=== PATIENT | female | born 1945 | race Caucasian/White ===

== ENCOUNTER 2017-02-17 14:23 | Inpatient (IN) | payer MEDICARE, OTHER ==
[~2017-02-17] VITALS: Ht 154.9 cm; Wt 80.3 kg
[~2017-02-17 14:23] MED LIST: ASPI-110 PO; FLUT1SPR5 EACH NARE; LISI-515 PO; LORA10TA PO; LORA1TAB12 PO; METO25TA3 PO; PANT40TA3 PO
[2017-02-20] MEDS ORDERED: SCOPOLAMINE 1.5 MG PATCH ONE (06:29)
[2017-02-20] MEDS ORDERED: APREPITANT 40 MG CAP ONE (06:29)
[2017-02-20] MEDS ORDERED: LACTATED RINGER'S 1000 ML INJ 1,000 ML ONE (06:30)
[2017-02-20] MEDS ORDERED: metroNIDAZOLE 500 MG INJ 100 ML IV ONE (06:30)
[2017-02-20] MEDS ORDERED: ACETAMINOPHEN 1000 MG/100 ML VIAL IV ONE (06:30)
[2017-02-20] MEDS ORDERED: ONDANSETRON HCL 4 MG/2 ML VIAL ONE (06:30)
[2017-02-20 06:43] VITALS: BP 147/85; PULSE 77; RESP 20; TEMP 98.3; O2SAT 93
[2017-02-20] MEDS ORDERED: METOPROLOL TARTRATE 25 MG TAB PO PRN (06:45)
[2017-02-20] MEDS ORDERED: ONDANSETRON HCL 4 MG/2 ML VIAL IV PUSH SCH (06:45)
[2017-02-20] MEDS ORDERED: VANCOMYCIN 1,250 MG/NS 250 ML (for 70-84 kg) IV SCH ×2 (06:45)
[2017-02-20] MEDS ORDERED: ACETAMINOPHEN 1000 MG/100 ML VIAL IV SCH (06:45)
[2017-02-20] MEDS ORDERED: SCOPOLAMINE 1.5 MG PATCH T-DERMAL SCH (06:45)
[2017-02-20] MEDS ORDERED: INSULIN HUMAN REGULAR 1,000 UNITS/10 ML VIAL SQ PRN (06:45)
[2017-02-20] MEDS ORDERED: LACTATED RINGER'S 1000 ML IV PRN (06:45)
[2017-02-20] MEDS ORDERED: CHLORHEXIDINE GLUCONATE 2 % 1 PACK (2 CLOTHS) TOPICAL PRN (06:45)
[2017-02-20] MEDS ORDERED: POVIDONE IODINE 5% (ANTISEPSIS KIT) 4 APPLICATIONS EACH NARE PRN (06:45)
[2017-02-20] MEDS ORDERED: SODIUM CHLORID 0.9% 500 ML IV PRN (06:45)
[2017-02-20] MEDS ORDERED: metroNIDAZOLE 500 MG INJ 100 ML IV SCH (06:45)
[2017-02-20] MEDS ORDERED: APREPITANT 40 MG CAP PO SCH (06:45)
[2017-02-20] MEDS ORDERED: DEXAMETHASONE SOD PHOS 4 MG/ML VIAL ONE (07:16)
[2017-02-20] MEDS ORDERED: BUPIVACAINE/EPINEPHRINE 0.25% 50 ML VIAL ONE (07:34)
[2017-02-20] MEDS ORDERED: BUPIVACAINE HCL PF 0.25% 30 ML VIAL ONE (07:59)
[2017-02-20] MEDS ORDERED: METHYLENE BLUE 100 MG/10 ML VIAL OTHER ONE (08:26)
[2017-02-20] MEDS: D5-1/2 NS + KCL 20 MEQ INJ 1,000 ML IV SCH ×4 (09:56→23:16)
[2017-02-20] MEDS ORDERED: DICLOFENAC SODIUM 37.5 MG/ML VIAL IV PUSH ONE (09:59)
[2017-02-20] MEDS ORDERED: SODIUM CHLORIDE 0.9% FLUSH 10 ML FLUSH IV FLUSH PRN (10:00)
[2017-02-20] MEDS ORDERED: Post-op Orders (for Pharmacy) MISC XX ONE (10:00)
[2017-02-20] MEDS ORDERED: MORPHINE SULFATE 30 MG/30 ML PCA IV SCH (10:00)
[2017-02-20] MEDS ORDERED: ENALAPRILAT 1.25 MG/ML VIAL IV PUSH PRN (10:00)
[2017-02-20] MEDS ORDERED: ONDANSETRON HCL 4 MG/2 ML VIAL IV PRN ×2 (10:00)
[2017-02-20] MEDS ORDERED: ACETAMINOPHEN 1000 MG/100 ML VIAL IV PRN (10:00)
[2017-02-20] MEDS ORDERED: diphenhydrAMINE HCL 50 MG/ML VIAL IV PRN (10:00)
[2017-02-20] MEDS ORDERED: diphenhydrAMINE HCL ELIXIR 12.5 MG/5 ML CUP PO PRN (10:00)
[2017-02-20] MEDS ORDERED: NALOXONE HCL 0.4 MG/ML AMP IV PRN (10:00)
[2017-02-20] MEDS ORDERED: fentaNYL CITRATE 250 MCG/5 ML AMP ONE (10:24)
[2017-02-20] MEDS ORDERED: MIDAZOLAM HCL 2 MG/2 ML VIAL ONE (10:24)
[2017-02-20] MEDS: METOCLOPRAMIDE HCL 10 MG/2 ML VIAL IVS SCH ×3 (11:30→22:56)
[2017-02-20] MEDS: RESP: ALBUTEROL 2.5 MG/3 ML NEB (SCH) INH ×3 (11:31→19:25)
[2017-02-20] MEDS ORDERED: ePHEDrine/NS 25 MG/5 ML SYR IV ONE (12:00)
[2017-02-20] MEDS ORDERED: NEOSTIGMINE 3 MG/3 ML SYR IV ONE (12:00)
[2017-02-20] MEDS ORDERED: PHENYLEPH/NS 1000 MCG/10 ML SYR IV ONE (12:00)
[2017-02-20] MEDS ORDERED: ONDANSETRON HCL 4 MG/2 ML VIAL IV PUSH ONE (12:00)
[2017-02-20] MEDS ORDERED: LACTATED RINGER'S 1000 ML INJ 2,000 ML IV ONE (12:00)
[2017-02-20] MEDS ORDERED: PROPOFOL 200 MG/20 ML AMP IV ONE (12:00)
[2017-02-20] MEDS: ENOXAPARIN SODIUM 40 MG/0.4 ML SYRINGE SQ SCH (13:52)
[2017-02-20] MEDS: metroNIDAZOLE 500 MG INJ 100 ML IV SCH ×2 (14:23→22:56)
[2017-02-20 15:32] VITALS: O2SAT 95
[2017-02-20 16:00] VITALS: BP 129/66; PULSE 77; RESP 14; TEMP 96; O2SAT 100
[2017-02-20] MEDS: VANCOMYCIN INJ 1,000 MG in SODIUM CHLOR 0.9% 250 ML INJ 250 ML IV SCH (19:37)
[2017-02-20] MEDS: SODIUM CHLORIDE 0.9% FLUSH 10 ML FLUSH IV FLUSH SCH (19:38)
[2017-02-20 20:00] VITALS: BP 135/78; PULSE 92; RESP 20; TEMP 97.8; O2SAT 97
[2017-02-20] MEDS: PCA - TOTAL MG MORPHINE DELIVERED PER SHIFT SCH (22:00)
[2017-02-21] VITALS: BP 130/78; PULSE 94; RESP 20; TEMP 97; O2SAT 98
[2017-02-21] MEDS: RESP: ALBUTEROL 2.5 MG/3 ML NEB (SCH) INH ×3 (01:30→12:11)
[2017-02-21 01:31] VITALS: O2SAT 95
[2017-02-21] MEDS: D5-1/2 NS + KCL 20 MEQ INJ 1,000 ML IV SCH ×3 (01:56→11:17)
[2017-02-21] MEDS: SUCRALFATE 1 GM/10 ML CUP PO SCH ×2 (05:20→11:14)
[2017-02-21] MEDS: METOCLOPRAMIDE HCL 10 MG/2 ML VIAL IVS SCH (05:20)
[2017-02-21] MEDS: PCA - TOTAL MG MORPHINE DELIVERED PER SHIFT SCH ×2 (06:00→11:17)
[2017-02-21] MEDS: metroNIDAZOLE 500 MG INJ 100 ML IV SCH (06:12)
[2017-02-21 06:19] LABS: AUTOMATED NEUTROPHIL # 11.9 TH/MM3 (1.8-7.7); BASOPHIL # 0.1 TH/MM3 (0-0.2); BASOPHIL % 0.7 % (0.0-2.0); EOSINOPHIL # 0.1 TH/MM3 (0-0.4); EOSINOPHIL % 0.5 % (0.0-4.0); HEMATOCRIT 35.3 % (35.0-46.0); HEMO FLAGS DIFF FINAL; LYMPHOCYTE # 1.8 TH/MM3 (1.0-4.8); MEAN CELL VOLUME 79.2 FL (80.0-100.0); MEAN CORPUSCULAR HEMOGLOBIN 25.4 PG (27.0-34.0); MEAN CORPUSCULAR HGB CONC 32.1 % (32.0-36.0); NEUT % 78.8 % (16.0-70.0); PLATELET COUNT 296 TH/MM3 (150-450); RED BLOOD COUNT 4.45 MIL/MM3 (4.00-5.30); RED CELL DISTRIBUTION WIDTH 16.9 % (11.6-17.2); WHITE BLOOD COUNT 15.1 TH/MM3 (4.0-11.0)
[2017-02-21 06:40] LABS: BICARBONATE 23.7 MEQ/L (21.0-32.0); MAGNESIUM 2.3 MG/DL (1.5-2.5); POTASSIUM 4.3 MEQ/L (3.5-5.1)
[2017-02-21 08:00] VITALS: BP 122/60; PULSE 106; RESP 17; TEMP 98.6; O2SAT 95
[2017-02-21] MEDS: VANCOMYCIN INJ 1,000 MG in SODIUM CHLOR 0.9% 250 ML INJ 250 ML IV SCH (08:24)
[2017-02-21] MEDS: SODIUM CHLORIDE 0.9% FLUSH 10 ML FLUSH IV FLUSH SCH (08:26)
[2017-02-21] MEDS ORDERED: PANTOPRAZOLE SOD 40 MG DELAYED RELEASE TAB PO SCH (09:00)
[2017-02-21] MEDS ORDERED: PANTOPRAZOLE SODIUM 40 MG VIAL IVP SCH (09:00)
[2017-02-21 09:01] VITALS: O2SAT 93
[2017-02-21] MEDS ORDERED: METOCLOPRAMIDE HCL 10 MG/2 ML VIAL IVS PRN (10:00)
[2017-02-21] MEDS ORDERED: METOPROLOL TARTRATE 25 MG TAB PO SCH (10:30)
[2017-02-21] MEDS ORDERED: LISINOPRIL 10 MG TAB PO SCH (10:30)
--- NOTE | 2017-02-21 10:43 | HHI.PR ---
Subjective Subjective Notes 72 yo female POD #1 removal of gastric band and conversion to VSG Sitting up in bed in no acute distress Denies nausea or pain Objective Vitals/I&O Vital Signs Date Time Temp Pulse Resp B/P Pulse Ox O2 Delivery O2 Flow Rate FiO2 02/21/17 09:01 93 21 02/21/17 08:00 98.6 106 17 122/60 02/20/17 15:32 Nasal Cannula 2.00 Labs Laboratory Tests Test 02/21/17 05:36 White Blood Count 15.1 Red Blood Count 4.45 Hemoglobin 11.3 Hematocrit 35.3 Mean Corpuscular Volume 79.2 Mean Corpuscular Hemoglobin 25.4 Mean Corpuscular Hemoglobin 32.1 Concent Red Cell Distribution Width 16.9 Platelet Count 296 Mean Platelet Volume 8.1 Neutrophils (%) (Auto) 78.8 Lymphocytes (%) (Auto) 12.0 Monocytes (%) (Auto) 8.0 Eosinophils (%) (Auto) 0.5 Basophils (%) (Auto) 0.7 Neutrophils # (Auto) 11.9 Lymphocytes # (Auto) 1.8 Monocytes # (Auto) 1.2 Eosinophils # (Auto) 0.1 Basophils # (Auto) 0.1 CBC Comment DIFF FINAL Differential Comment Sodium Level 138 Potassium Level 4.3 Chloride Level 105 Carbon Dioxide Level 23.7 Anion Gap 9 Blood Urea Nitrogen 12 Creatinine 1.04 Estimat Glomerular Filtration 52 Rate Random Glucose 143 Calcium Level 9.1 Magnesium Level 2.3 Cardiovascular: Regular Lungs: Clear Abdomen: Post-op tenderness Extremities: Perfused Wound Wound : Wound Location: Abdomen Appearance: Clean & Dry A/P Assessment and Plan 1. Continue with clear/full liquids. Start protein shakes tomorrow 2. Continue frequent ambulation 3. Monitor BP at home, hold lisinopril if SPB <110 4. Discharge home today Daryl Hdez [facility] Feb 21, 2017 10:43
[2017-02-21 12:00] VITALS: BP 131/63; PULSE 108; RESP 18; TEMP 98.6; O2SAT 95
[2017-02-21] MEDS: ENOXAPARIN SODIUM 40 MG/0.4 ML SYRINGE SQ SCH (14:50)
[2017-02-21 16:00] VITALS: BP 128/69; PULSE 103; RESP 18; TEMP 98.4; O2SAT 95
--- NOTE | 2017-02-27 11:21 | MP ---
cc: TATO LOONEY DATE OF 1945 DATE OF OPERATION 02/20/2017 PREOPERATIVE DIAGNOSIS Severe obesity with a BMI of 35 complicated by essential hypertension and malfunctioning gastric band. POSTOPERATIVE DIAGNOSIS Severe obesity with a BMI of 35 complicated by essential hypertension and malfunctioning gastric band. PROCEDURE Removal of adjustable gastric band, laparoscopic vertical sleeve gastrectomy over a 36-[place] ViSiGi bougie. SURGEON Tato Looney MD ANESTHESIA General endotracheal anesthesia. ESTIMATED BLOOD LOSS Scant. FINDINGS Adhesions around the gastric band. Fatty liver. SPECIMENS None. COMPLICATIONS None. OPERATION The patient was brought to the operating room, placed on the operating table in supine position, bilateral sequential inflation device placed on the lower extremity extremities, general anesthesia instituted, Giron catheter placed, antibiotic initiated. The abdomen was prepped and draped sterilely. A point 15 cm distal to the xiphoid in the midline was anesthetized with 0.25% Marcaine with epinephrine. The skin incision was made, a 5-mm OptiView port placed under direct vision and pneumoperitoneum created. Under direct vision, two 5-mm left upper quadrant ports, a 15-mm right upper quadrant and a 5-mm right upper quadrant port was placed. Prior to placement of all ports the skin and peritoneum were anesthetized with 0.25% Marcaine with epinephrine. The patient was placed in reverse Trendelenburg position, left side up. Findings as above. Adhesions anterior to the adjustable gastric band were sharply . The tubing of the band was divided at the peritoneum. The band was divided and removed from its retrocardiac position and removed from the abdominal cavity gastric-gastric plication was taken down. The capsule that was posterior to the balloon was divided horizontally vertically. A 36-[place] ViSiGi bougie was placed into the stomach. The vasculature along the greater curve of the stomach was using the harmonic scalpel from a distance 5 cm proximal to the pylorus and taken towards the angle of His. The posterior ligamentous attachments were sharply . Division of the stomach was started 5-cm proximal to the pylorus and carried towards the angle of His. This was performed using an [place]-Flex power stapler. The first firing was with a black load, followed by four green loads. All staple loads were reinforced with SeamGuard. A distance of 2 cm was left from the angle incisura in the staple line. A distance of 1 cm was left from the GE junction and the staple line. The pylorus was then occluded, methylene blue instilled through the bougie. There was no evidence of extravasation. The gastrocolic ligament was then sutured to the posterior leaflet of the SeamGuard using a 2-0 Vicryl suture in a running manner. The excised stomach was removed from the peritoneal cavity in an Endopouch through the 15-mm port site. The fascia at the 15-mm port site was approximated with 0 Vicryl using the fascial closure device. The operative field was inspected. The CO2 was released, all ports removed, all skin incisions were closed with 4-0 Monocryl. The abdominal wall was cleaned and sterile dressing placed. The patient was awakened and taken to the recovery room. MD KONG Ambrocio/SSB /10:22 AM /11:07 AM
== END 2017-02-21 16:26 | disposition home or self-care (01) | DRG 909 ==
LOC: HSDI 02-20 05:45 → N07A 02-20 14:49
PROVIDERS: ADMIT Surgery; ATTEND Surgery
PROC: 0DP64CZ Removal of Extraluminal Device from Stomach, Percutaneous Endoscopic Approach (ICD-10-PCS; 2017-02-20)
PROC: 0DB64Z3 Excision of Stomach, Percutaneous Endoscopic Approach, Vertical (ICD-10-PCS; principal; 2017-02-20 07:52)
DX: T85.598A Other mechanical complication of other gastrointestinal prosthetic devices, implants and grafts, initial encounter (principal); K76.0 Fatty (change of) liver, not elsewhere classified; I10 Essential (primary) hypertension; E78.5 Hyperlipidemia, unspecified; Z87.891 Personal history of nicotine dependence; Z86.73 Personal history of transient ischemic attack (TIA), and cerebral infarction without residual deficits; K21.9 Gastro-esophageal reflux disease without esophagitis; E66.9 Obesity, unspecified; Z68.33 Body mass index [BMI] 33.0-33.9, adult; F32.9 Major depressive disorder, single episode, unspecified; J30.9 Allergic rhinitis, unspecified; F41.9 Anxiety disorder, unspecified
CPT/HCPCS: 80048; 83735; 85025; 94150; 94640; 94664; J0131; J1100; J1130; J1650; J2250; J2270; J2370; J2405; J2710; J2765; J3010; J3370; J3480; J7050; J7120; J7613; J8501

== ENCOUNTER → 2018-02-12 | Day surgery (SDC) | payer MEDICARE, OTHER ==
[~2018-02-12] MED LIST changes: -ASPI-110 PO; +ASPI1TAB57 PO; +BUPIVACAINE HCL PF 0.5% 30 ML VIAL ONE; +LISI-519 PO; +MAPA500T13 PO; +PROPOFOL 200 MG/20 ML AMP IV ONE; +TRIAMCINOLONE ACETONIDE 40 MG/ML VIAL NERV BLOCK ONE; +ZANT150T2 PO; +methylPREDNISolone ACETATE 40 MG/ML VIAL I-ARTICULR ONE
--- NOTE | 2018-02-12 09:53 | M6 ---
cc: Juancarlos Lambert MD DATE: 02/12/2018 DATE OF : 1945 PROCEDURE: Fluoroscopically-guided injection left hip joint. History and physical was completed and signed. Consent was signed. Procedure site was marked. Medications were listed and reconciled. Pain score was recorded. Allergies were noted. Time out was taken. Fluoroscopy time was recorded where applicable. Sedation was administered or directed by Dr. Lambert. The patient was given oxygen. The patient was monitored by a registered nurse. Total procedure time was greater than 15 minutes. PROCEDURE NOTE: Blood pressure cuff and pulse oximeter were applied. IV was started. The patient was placed in the supine position on a Quan table, sedated with small amounts of propofol titrated to effect. Vital signs were monitored and remained stable throughout the procedure. The left hip area was prepped with alcohol and 10% Betadine solution and draped with sterile drapes. Fluoroscopy was used to visualize the left acetabulum. Then, a 3-1/2 inch, 22-gauge spinal needle was advanced into the cephalad portion of the acetabulum. There was negative aspiration for blood or any other type of fluid and the patient was given 3 mL of 0.5% Marcaine, 20 mg of Depo-Medrol, 20 mg of Kenalog. Following the procedure, the patient was taken to the recovery room with stable vital signs and neurologically intact. She will be evaluated immediately and with followup to determine if she has a subjective decrease in her usual pain and a corresponding objective increase in her functional capability. MD PATRICE Jackson/MATTIE , 09:23 AM , 09:52 AM
== END | disposition home or self-care (01) ==
LOC: PHSDC 08:00
PROVIDERS: ATTEND Pain Medicine Interventional Pain Medicine
DX: M54.5 Low back pain (principal); M25.552 Pain in left hip
CPT/HCPCS: 20610; 99152; J1030; J3301